=== PATIENT | female | born 1960 | race Caucasian/White ===

== ENCOUNTER 2018-10-11 14:04 | Emergency (ER) | payer MEDICARE, MEDICAID ==
[~2018-10-11] VITALS: Ht 154.9 cm; Wt 55.9 kg
[~2018-10-11 14:04] MED LIST: NAPROSYN500 MG PO; NAPROXEN500 MG PO; NEURONTIN 300300 M1 PO; ULTRAM 50MG TAB50 MG PO; VALIUM5 MG PO
[2018-10-11 14:19] LABS: URINE BILIRUBIN NEGATIVE (Negative); URINE BLOOD 2+ (Negative); URINE CLARITY SL CLOUDY; URINE COLOR YELLOW; URINE GLUCOSE-RANDOM NEGATIVE (Negative); URINE KETONES NEGATIVE (Negative); URINE PROTEIN 1+ (Negative); URINE UROBILINOGEN 0.2 E.U./dl (0.2-1.0)
[2018-10-11 14:20] LABS: URINE LEUKOCYTES-REFLEX 3+ (Negative); URINE NITRITE-REFLEX POSITIVE (Negative)
[2018-10-11 14:25] LABS: SQUAMOUS 0-3 Few /LPF (0-3)
[2018-10-11 14:26] LABS: BACTERIA-REFLEX >30 Many /HPF (None Seen); URINE RBC >20 Many /HPF (0-2)
[2018-10-11 14:27] LABS: CASTS None Seen /LPF (None Seen); CRYSTALS None Seen /LPF (None Seen); MUCUS 4-6 Moderate strn/LPF (None Seen)
[2018-10-11] MEDS ORDERED: PEPCID20 MG PO (14:27)
[2018-10-11] MEDS ORDERED: GABAPENTIN 100100 MG PO (14:27)
[2018-10-11] MEDS ORDERED: SEROQUEL 50 MG50 MG PO (14:29)
[2018-10-11] MEDS ORDERED: VITAMIN D3400 UNIT PO (14:30)
[2018-10-11] MEDS ORDERED: DULCOLAX5 MG PO (14:31)
[2018-10-11] MEDS ORDERED: MIRALAX17 GM PO ×2 (14:31→15:46)
[2018-10-11] MEDS ORDERED: LEXAPRO 10 MG T10 M1 PO (14:32)
[2018-10-11] MEDS ORDERED: ULTRAM 50MG TAB50 MG PO (14:32)
[2018-10-11 14:45] LABS: ABSOLUTE BASOPHILS 0.1 thou/uL (0.0-0.2); ABSOLUTE EOSINOPHILS 0.1 thou/uL (0.0-0.7); ABSOLUTE LYMPHOCYTES 2.9 thou/uL (0.8-5.3); ABSOLUTE MONOCYTES 0.9 thou/uL (0.0-1.2); ABSOLUTE NEUTROPHILS 8.6 thou/uL (1.6-8.1); BASOPHILS 0.6 %; EOSINOPHILS 1.1 %; HEMATOCRIT 38.2 % (37.0-47.0); HEMOGLOBIN 12.6 gm/dL (12.0-15.0); LYMPHOCYTES 22.7 %; MCH 29.1 pg (26.0-34.0); MCHC 33.1 g/dL (28.0-37.0); MCV 87.9 fL (80.0-100.0); MONOCYTES 7.4 %; MPV 8.4 fl. (7.2-11.1); NUCLEATED RBCS 0 /100WBC; PLATELET COUNT* 572 thou/uL (150-400); POLYS 68.2 %; RBC 4.35 mil/uL (4.20-5.00); RDW-CV 15.4 % (10.5-14.5); WBC 12.6 thou/uL (4.0-11.0)
[2018-10-11 14:51] LABS: ANION GAP 9 mmol/L (7-16); BUN 17 mg/dL (7-18); CALCIUM 9.9 mg/dL (8.5-10.1); CHLORIDE 101 mmol/L (98-107); CO2 26 mmol/L (21-32); CREATININE 0.6 mg/dL (0.6-1.3); GLUCOSE 95 mg/dL (70-99); SODIUM 136 mmol/L (136-145)
[2018-10-11 15:00] LABS: ALBUMIN 3.3 g/dL (3.4-5.0); ALKALINE PHOSPHATASE 105 U/L (46-116); LIPASE 165 U/L (73-393); SGOT 17 U/L (15-37); SGPT 29 U/L (30-65); TOTAL BILIRUBIN 0.3 mg/dL (<0.1-1.0); TOTAL PROTEIN 7.6 g/dL (6.4-8.2); TROPONIN-I LEVEL <0.06 ng/mL (<0.06)
[2018-10-11] MEDS ORDERED: CIPROFLOXACIN500 M1 PO (15:46)
[2018-10-11 16:00] VITALS: BP 115/75
--- NOTE | 2018-10-14 09:24 | EKG ---
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
== END 2018-10-11 16:20 | disposition home or self-care (01) ==
LOC: M.ERS 14:04
PROVIDERS: Family Medicine
DX: N39.0 Urinary tract infection, site not specified (principal); K59.00 Constipation, unspecified; R10.84 Generalized abdominal pain; Z90.711 Acquired absence of uterus with remaining cervical stump; Z90.49 Acquired absence of other specified parts of digestive tract; G35 Multiple sclerosis; K50.90 Crohn's disease, unspecified, without complications; Z88.5 Allergy status to narcotic agent; Z88.2 Allergy status to sulfonamides

== ENCOUNTER 2019-10-09 16:52 | Emergency (ER) | payer MEDICARE ==
[~2019-10-09] VITALS: Ht 152.4 cm; Wt 67.1 kg
[~2019-10-09 16:52] MED LIST changes: +CIPROFLOXACIN500 M1 PO; +DULCOLAX5 MG PO; +GABAPENTIN 100100 MG PO; +LEXAPRO 10 MG T10 M1 PO; +MIRALAX17 GM PO; +PEPCID20 MG PO; +SEROQUEL 50 MG50 MG PO; +VITAMIN D3400 UNIT PO
[2019-10-09 16:58] VITALS: BP 129/89
[2019-10-09] MEDS ORDERED: PERCOCET 5-3251 EACH PO ×2 (17:01→19:55)
[2019-10-09 17:20] LABS: ABSOLUTE BASOPHILS 0.2 thou/uL (0.0-0.2); ABSOLUTE EOSINOPHILS 0.1 thou/uL (0.0-0.7); ABSOLUTE MONOCYTES 1.2 thou/uL (0.0-1.2); ABSOLUTE NEUTROPHILS 10.6 thou/uL (1.6-8.1); BASOPHILS 1.1 %; EOSINOPHILS 0.4 %; HEMATOCRIT 39.3 % (37.0-47.0); HEMOGLOBIN 13.5 gm/dL (12.0-15.0); LYMPHOCYTES 19.7 %; MCH 30.8 pg (26.0-34.0); MCHC 34.4 g/dL (28.0-37.0); MCV 89.5 fL (80.0-100.0); MONOCYTES 8.3 %; MPV 9.2 fl. (7.2-11.1); NUCLEATED RBCS 0 /100WBC; PLATELET COUNT* 464 thou/uL (150-400); POLYS 70.5 %; RBC 4.39 mil/uL (4.20-5.00); RDW-CV 14.6 % (10.5-14.5); WBC 15.1 thou/uL (4.0-11.0)
[2019-10-09 17:30] LABS: CALCIUM 9.3 mg/dL (8.5-10.1); CREATININE 0.8 mg/dL (0.6-1.3)
[2019-10-09 17:34] LABS: ALBUMIN 3.6 g/dL (3.4-5.0); TOTAL BILIRUBIN 0.6 mg/dL (<0.1-1.0); TOTAL PROTEIN 8.4 g/dL (6.4-8.2)
[2019-10-09 19:44] LABS: URINE BILIRUBIN NEGATIVE (Negative); URINE BLOOD NEGATIVE (Negative); URINE CLARITY CLEAR; URINE COLOR YELLOW; URINE GLUCOSE-RANDOM NEGATIVE (Negative); URINE KETONES NEGATIVE (Negative); URINE LEUKOCYTES-REFLEX NEGATIVE (Negative); URINE NITRITE-REFLEX NEGATIVE (Negative); URINE PROTEIN NEGATIVE (Negative); URINE UROBILINOGEN 0.2 E.U./dl (0.2-1.0)
[2019-10-09] MEDS ORDERED: FLEXERIL PO (19:55)
[2019-10-09 20:05] VITALS: BP 121/70
--- NOTE | 2019-10-10 13:35 | EKG ---
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: : 1960 Requested By: Ady Molina Order Number: [id number] MD: Roshan Anand Measurements Intervals [place] Rate: 105 P: 66 MO: 151 QRS: 66 QRSD: 59 T: 57 QT: 402 QTc: 532 Interpretive Statements Sinus tachycardia nonspecific st changes Borderline low voltage, extremity leads Abnormal R-wave progression, early transition Prolonged QT interval Compared to ECG 10/11/2018 14:45:03 Prolonged QT interval now present Electronically Signed On 10-10-2019 13:35:47 CDT by Roshan Anand [email or web address] <ELECTRONICALLY SIGNED> By: Roshan Anand MD, [facility] 10/10/19 1335 1657 1657 Roshan Anand MD, [facility] /EPI
== END 2019-10-09 21:27 | disposition home or self-care (01) ==
LOC: M.ERS 16:52 → M.TBA-ER 18:47 → M.ERS 18:47
PROVIDERS: Emergency Medicine
DX: M54.9 Dorsalgia, unspecified (principal); R10.30 Lower abdominal pain, unspecified; K50.90 Crohn's disease, unspecified, without complications; Z90.711 Acquired absence of uterus with remaining cervical stump; Z90.49 Acquired absence of other specified parts of digestive tract; Z88.2 Allergy status to sulfonamides; Z88.6 Allergy status to analgesic agent